=== PATIENT | female | born 1965 | race Caucasian/White ===

== ENCOUNTER 2017-12-13 08:10 | Outpatient (AMBR) | payer MEDICARE, MEDICAID, SELFPAY ==
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
== END 2017-12-20 23:59 | disposition home or self-care (01) ==
PROVIDERS: PCP Physician Assistant; Referring Provider Physician Assistant; Visit Provider Physician Assistant
DX: I10 Essential (primary) hypertension (principal)
CPT/HCPCS: 97162; G8978; G8979